=== PATIENT | male | born 1995 | race Caucasian/White ===

== ENCOUNTER 2024-01-20 11:02 | Outpatient (CLI) | payer MEDICAID | END 2024-01-20 23:59 | disposition home or self-care (01) | LOC: RAD 11:02 | PROVIDERS: ATTEND Physician Assistant Medical | DX: Z00.8 Encounter for other general examination (principal); N43.3 Hydrocele, unspecified; N50.89 Other specified disorders of the male genital organs | CPT/HCPCS: 76870; 93976 ==